=== PATIENT | female | born 1955 | race American Indian/Alaskan Native ===

== ENCOUNTER 2021-11-23 14:21 | Emergency (ER) | payer SELFPAY ==
[2021-11-23] MEDS ORDERED: LISINOPRIL 10 MG TAB PO ONE (16:57)
[2021-11-23 18:13] LABS: Color,Urine Colorless (Yellow)
--- NOTE | 2021-11-23 19:05 | Emergency Department Report ---
ED General Adult HPI - General Chief complaint: High BP Stated complaint: Hypertension Time Seen by Provider: 11/23/21 16:37 Source: patient Mode of arrival: Ambulatory Limitations: No Limitations - History of Present Illness Initial comments: Patient is a 66-year-old female who has been rationing her blood pressure medications for the last 2 weeks because she thought she was going to run out. She states there has been COVID in her household so she has not wanted to go into her doctor's office. She has not called them to ask for a prescription but decided to just ration them. This morning she only took a half of her lisinopril HCT (20/25 per her ). She took her blood pressure this morning and it was elevated so she took it several more times. She also has clonidine prescribed to her if her blood pressure is elevated and she took that but it did not help much. The maximum reading was 182/106 and she became very concerned. She is also states she has been having some frequency of urination as well as some mild dysuria and right flank pain. She denies any fever or chills. She has had a mild intermittent headache but no headache at this time. No visual changes focal weakness slurred speech or dysphagia. No chest pain or shortness of breath. Improves with: none Worsens with: none Associated Symptoms: denies: confusion, chest pain, cough, diaphoresis, fever/chills, loss of appetite, malaise, nausea/vomiting, rash, seizure, shortness of breath, syncope, weakness - Related Data Previous Rx's Medication Instructions Recorded Last Taken Type Lisinopril/Hydrochlorothiazide 1 tab PO QDAY #30 tab 11/23/21 Unknown Rx [Zestoretic 20-25 mg] amLODIPine 5 mg PO DAILY #30 tablet 11/23/21 Unknown Rx Allergies Allergy/AdvReac Type Severity Reaction Status Date / Time ciprofloxacin [From Cipro] Allergy Anaphylaxis Verified 11/23/21 14:44 ED Review of Systems ROS: Stated complaint: SEVERE HYPERTENSION Other details as noted in HPI Constitutional: denies: chills, fever Eyes: denies: eye pain, eye discharge, vision change ENT: denies: ear pain, throat pain Respiratory: denies: cough, shortness of breath, wheezing Cardiovascular: denies: chest pain, palpitations Endocrine: no symptoms reported Gastrointestinal: denies: abdominal pain, nausea, diarrhea Genitourinary: denies: urgency, dysuria, discharge Musculoskeletal: denies: back pain, joint swelling, arthralgia Skin: denies: rash, lesions Neurological: denies: weakness, paresthesias Psychiatric: denies: anxiety, depression Hematological/Lymphatic: denies: easy bleeding, easy bruising ED Past Medical Hx - Past Medical History Previous Medical History?: Yes Hx Hypertension: Yes - Surgical History Past Surgical History?: No - Medications Home Medications: Home Medications Medication Instructions Recorded Confirmed Last Taken Type Lisinopril/Hydrochlorothiazide 1 tab PO QDAY #30 tab 11/23/21 Unknown Rx [Zestoretic 20-25 mg] amLODIPine 5 mg PO DAILY #30 tablet 11/23/21 Unknown Rx ED Physical Exam - General Limitations: No Limitations General appearance: alert, in no apparent distress - Head Head exam: Present: atraumatic, normocephalic - Eye Eye exam: Present: normal appearance, PERRL, EOMI. Absent: scleral icterus, conjunctival injection - ENT ENT exam: Present: mucous membranes moist - Neck Neck exam: Present: normal inspection, full ROM. Absent: tenderness, meningismus - Respiratory Respiratory exam: Present: normal lung sounds bilaterally. Absent: respiratory distress, wheezes - Cardiovascular Cardiovascular Exam: Present: regular rate, normal rhythm, normal heart sounds. Absent: systolic murmur, diastolic murmur, rubs, gallop - GI/Abdominal GI/Abdominal exam: Present: soft, normal bowel sounds - Extremities Exam Extremities exam: Present: normal inspection - Back Exam Back exam: Present: normal inspection - Neurological Exam Neurological exam: Present: alert, oriented X3, CN II-XII intact, reflexes normal. Absent: motor sensory deficit - Psychiatric Psychiatric exam: Present: normal affect, normal mood - Skin Skin exam: Present: warm, dry, intact, normal color. Absent: rash ED Course Vital Signs 11/23/21 11/23/21 11/23/21 14:42 17:04 21:14 Temperature 98.5 F Pulse Rate 81 81 69 Respiratory 18 Rate Blood Pressure 208/102 184/98 Blood Pressure 208/102 [Left] O2 Sat by Pulse 99 Oximetry - Reevaluation(s) Reevaluation #1: 11/23/21 19:05 Patient started having right lower extremity cannot cramps here in the emergency department and was concerned that her potassium might be low as that has happened in the past. ED Medical Decision Making - Lab Data Result diagrams: 11/23/21 19:46 11/23/21 19:41 - Medical Decision Making Elevated blood pressure in a 66-year-old female who has been rationing her medications because she was afraid she was going to run out. She is also had some urinary frequency and mild dysuria. CBC CMP and urine all normal. Blood pressure treated here. Maximum blood pressure was 168/106 and she was asymptomatic with that. Blood pressure at discharge was 197/90. She was given her evening dose of amlodipine prior to discharge as she does take that in the evening and is out of that as well. She is also out of her lisinopril hydrochlorothiazide and amlodipine. We will give her a 30-day supply and she needs to follow-up with her primary care doctor sometime within the next couple weeks. Critical care attestation.: If time is entered above; I have spent that time in minutes in the direct care of this critically ill patient, excluding procedure time. ED Disposition Clinical Impression: Hypertension, Noncompliance with medication regimen Disposition: 01 HOME / SELF CARE / HOMELESS Is pt being admited?: No Condition: Stable Instructions: Hypertension, Adult, [id number], Hypertension (ED) Additional Instructions: Follow-up with your primary care doctor sometime this week. Refill your amlodipine and hydrochlorothiazide as prescribed. Do not ration blood pressure medications in the future. Prescriptions: amLODIPine 5 mg PO DAILY #30 tablet Lisinopril/Hydrochlorothiazide [Zestoretic 20-25 mg] 1 tab PO QDAY #30 tab Time of Disposition: 20:50
[2021-11-23 19:55] LABS: Basophils # (Auto) 0.1 K/mm3 (0.0-0.1); Basophils % (Auto) 0.7 % (0.0-1.8); Eosinophils % (Auto) 0.2 % (0.0-4.3); Hematocrit 31.5 % (30.3-42.9); Hemoglobin 9.5 gm/dl (10.1-14.3); Lymphocytes # (Auto) 0.9 K/mm3 (1.2-5.4); Lymphocytes % (Auto) 11.1 % (13.4-35.0); Mean Corpuscular HGB Conc 30 % (30-34); Monocytes # (Auto) 0.5 K/mm3 (0.0-0.8); Monocytes % (Auto) 6.5 % (0.0-7.3); Red Blood Count 4.77 M/mm3 (3.65-5.03)
[2021-11-23 20:02] LABS: Mean Corpuscular Volume 66 fl (79-97); Platelet Count 474 K/mm3 (140-440); Red Cell Distribution Width 22.2 % (13.2-15.2)
[2021-11-23 20:18] LABS: Alanine Aminotransferase 10 units/L (7-56); Albumin 5.2 g/dL (3.9-5); Blood Urea Nitrogen 7 mg/dL (7-17); Calcium 10.4 mg/dL (8.4-10.2); Hemolysis Index 3
[2021-11-23 20:33] LABS: BUN/Creatinine Ratio 10
[2021-11-23] MEDS ORDERED: amLODIPine 5 MG TAB PO ONE (20:45)
[2021-11-23 23:31] VITALS: BP 167/86
== END 2021-11-23 21:25 | disposition home or self-care (01) ==
LOC: ED 14:21
DX: I10 Essential (primary) hypertension (principal); Z91.14 Patient's other noncompliance with medication regimen
CPT/HCPCS: 36415; 80053; 81001; 85025; 99283